=== PATIENT | male | born 1960 | race African-American/Black ===

== ENCOUNTER 2020-03-07 19:00 | Inpatient (IN) | payer OTHER ==
[2020-03-07 21:18] VITALS: BMI 22.9
[2020-03-07] MEDS ORDERED: P-EPHED 60MG/TRIPROLIDI 2.5MG TABLET PO PRN (22:50)
[2020-03-07] MEDS ORDERED: guaiFENesin 200 MG/10 ML 10 ML UNIT-DOSE CUPS PO PRN (22:50)
[2020-03-07] MEDS ORDERED: MAGNESIUM CITRATE 300 ML BOTTLE PO PRN (22:50)
[2020-03-07] MEDS ORDERED: NICOTINE POLACRILEX 2 MG GUM BC PRN (22:50)
[2020-03-07] MEDS ORDERED: MAGNESIUM HYDROX 2400MG/30ML ORAL SUSPENSION 30 ML CUP PO PRN (22:50)
[2020-03-07] MEDS ORDERED: LOPERAMIDE HCL 2 MG CAPSULE PO PRN (22:50)
[2020-03-07] MEDS ORDERED: ACETAMINOPHEN 325 MG TABLET (FP) PO PRN (22:50)
[2020-03-07] MEDS ORDERED: MAG HYDROX/AL HYDROX/SIMETH 30 ML UNIT-DOSE CUP PO PRN (22:50)
[2020-03-07] MEDS ORDERED: PNEUMOC 13-VAL CONJ-DIP CRM/PF 0.5 ML DISP.SYRIN IM ONE (23:45)
[2020-03-08] MEDS ORDERED: TUBERCULIN PPD 5 TU/0.1ML VIAL ID ONE (00:42)
[2020-03-08] MEDS: IBUPROFEN 400 MG TABLET (FP) PO PRN ×2 (01:14→10:26)
[2020-03-08] MEDS: MELATONIN 5 MG TABLETS PO SCH ×2 (01:15→21:45)
[2020-03-08] MEDS: NICOTINE 21 MG/24 HOURS TOPICAL PATCH TD SCH (10:23)
[2020-03-08] MEDS: PRENATAL VITAMINS W/ FOLIC ACID TABLET (FP) PO SCH (10:23)
[2020-03-08] MEDS: BICTEGRAV/EMTRICIT/TENOFOV (BIKTARVY) 50-200-25 MG TABLET PO SCH (10:24)
[2020-03-08] MEDS: hydrOXYzine PAMOATE 25 MG CAPSULE (FP) PO PRN ×2 (10:24→21:45)
[2020-03-08] MEDS: SULFAMETHOXAZOLE/TRIMETHOPRIM 800MG/160MG D.S. TABLET PO SCH (10:24)
[2020-03-08] MEDS: PANTOPRAZOLE 40 MG TABLET PO SCH (10:24)
[2020-03-08] MEDS ORDERED: PREGABALIN 100 MG CAPSULE PO SCH ×2 (11:00→12:00)
[2020-03-08] MEDS ORDERED: FLU VACCINE (FLULAVAL) PF 60 MCG/0.5 ML SYRINGE 2020-2021 IM ONE (12:00)
[2020-03-08] MEDS: TOLNAFTATE 1% CREAM 15 GM TUBE TP SCH ×2 (12:07→21:45)
[2020-03-08 12:33] LABS: HEMATOCRIT 42.3 % (35.4-49); HEMOGLOBIN 13.7 GM/dL (11.7-16.9); MCHC 32.5 g/dl (32.0-35.9); MEAN CELL VOLUME 98.5 fl (80-96); MEAN PLT VOLUME 9.9 fl (7.5-11.1); PLATELET COUNT 168 K/MM3 (134-434); RBC 4.29 M/mm3 (4.00-5.60); RDW 15.8 % (11.9-15.9); WHITE BLOOD COUNT 4.9 K/mm3 (4.0-10.0)
[2020-03-08 12:35] LABS: POTASSIUM 4.4 mmol/L (3.5-5.1)
[2020-03-08 12:41] LABS: CALCIUM 8.8 mg/dL (8.5-10.1)
[2020-03-08 12:42] LABS: ALBUMIN 3.3 g/dl (3.4-5.0); BLOOD UREA NITROGEN 28.9 mg/dL (7-18)
[2020-03-08 12:45] LABS: CREATININE 1.3 mg/dL (0.55-1.3)
[2020-03-08 12:46] LABS: BILIRUBIN,TOTAL 0.7 mg/dL (0.2-1)
[2020-03-08 12:47] LABS: TOT PROT 7.7 g/dl (6.4-8.2)
[2020-03-08] MEDS: OLANZapine 5 MG TABLET PO SCH (21:45)
[2020-03-08] MEDS: MIRTAZAPINE 30 MG TABLET PO SCH (21:45)
[2020-03-08] MEDS: THIAMINE HCL 100 MG TABLET (FP) PO SCH (21:45)
[2020-03-09] MEDS: BICTEGRAV/EMTRICIT/TENOFOV (BIKTARVY) 50-200-25 MG TABLET PO SCH (07:01)
[2020-03-09] MEDS: PREGABALIN 100 MG CAPSULE PO SCH (10:13)
[2020-03-09] MEDS: PRENATAL VITAMINS W/ FOLIC ACID TABLET (FP) PO SCH (10:13)
[2020-03-09] MEDS: TOLNAFTATE 1% CREAM 15 GM TUBE TP SCH ×2 (10:14→21:52)
[2020-03-09] MEDS: PANTOPRAZOLE 40 MG TABLET PO SCH (10:14)
[2020-03-09] MEDS: NICOTINE 21 MG/24 HOURS TOPICAL PATCH TD SCH (10:14)
[2020-03-09] MEDS: SULFAMETHOXAZOLE/TRIMETHOPRIM 800MG/160MG D.S. TABLET PO SCH (10:14)
[2020-03-09] MEDS ORDERED: PNEUMOC 13-VAL CONJ-DIP CRM/PF 0.5 ML DISP.SYRIN IM ONE (12:00)
[2020-03-09 16:40] LABS: PH,URINE 5.5 (5.0-8.0); URINE APPEARANCE CLEAR; URINE BILIRUBIN NEGATIVE (NEGATIVE); URINE COLOR YELLOW; URINE GLUCOSE (UA) NEGATIVE (NEGATIVE); URINE KETONE NEGATIVE (NEGATIVE); URINE LEUK ESTERASE NEGATIVE (NEGATIVE); URINE NITRITE NEGATIVE (NEGATIVE); URINE PROTEIN NEGATIVE (NEGATIVE); URINE UROBILINOGEN 0.2 mg/dL (0.2-1.0)
[2020-03-09] MEDS: OLANZapine 5 MG TABLET PO SCH (21:50)
[2020-03-09] MEDS: MELATONIN 5 MG TABLETS PO SCH (21:50)
[2020-03-09] MEDS: THIAMINE HCL 100 MG TABLET (FP) PO SCH (21:51)
[2020-03-09] MEDS: hydrOXYzine PAMOATE 25 MG CAPSULE (FP) PO PRN (21:51)
[2020-03-09] MEDS: MIRTAZAPINE 30 MG TABLET PO SCH (21:51)
[2020-03-10] MEDS: BICTEGRAV/EMTRICIT/TENOFOV (BIKTARVY) 50-200-25 MG TABLET PO SCH (07:29)
[2020-03-10] MEDS: PRENATAL VITAMINS W/ FOLIC ACID TABLET (FP) PO SCH (10:22)
[2020-03-10] MEDS: PREGABALIN 100 MG CAPSULE PO SCH (10:23)
[2020-03-10] MEDS: PANTOPRAZOLE 40 MG TABLET PO SCH (10:23)
[2020-03-10] MEDS: SULFAMETHOXAZOLE/TRIMETHOPRIM 800MG/160MG D.S. TABLET PO SCH (10:23)
[2020-03-10] MEDS: NICOTINE 21 MG/24 HOURS TOPICAL PATCH TD SCH (10:24)
[2020-03-10] MEDS: TOLNAFTATE 1% CREAM 15 GM TUBE TP SCH ×2 (10:25→21:09)
[2020-03-10] MEDS: THIAMINE HCL 100 MG TABLET (FP) PO SCH (21:09)
[2020-03-10] MEDS: MELATONIN 5 MG TABLETS PO SCH (21:09)
[2020-03-10] MEDS: OLANZapine 5 MG TABLET PO SCH (21:10)
[2020-03-10] MEDS: MIRTAZAPINE 30 MG TABLET PO SCH (21:10)
[2020-03-10] MEDS: hydrOXYzine PAMOATE 25 MG CAPSULE (FP) PO PRN (21:10)
[2020-03-11] MEDS: BICTEGRAV/EMTRICIT/TENOFOV (BIKTARVY) 50-200-25 MG TABLET PO SCH (07:18)
[2020-03-11] MEDS: NICOTINE 21 MG/24 HOURS TOPICAL PATCH TD SCH (10:30)
[2020-03-11] MEDS: PREGABALIN 100 MG CAPSULE PO SCH (10:30)
[2020-03-11] MEDS: PRENATAL VITAMINS W/ FOLIC ACID TABLET (FP) PO SCH (10:30)
[2020-03-11] MEDS: PANTOPRAZOLE 40 MG TABLET PO SCH (10:30)
[2020-03-11] MEDS: SULFAMETHOXAZOLE/TRIMETHOPRIM 800MG/160MG D.S. TABLET PO SCH (10:30)
[2020-03-11] MEDS: TOLNAFTATE 1% CREAM 15 GM TUBE TP SCH ×2 (10:32→21:53)
[2020-03-11] MEDS: THIAMINE HCL 100 MG TABLET (FP) PO SCH (21:52)
[2020-03-11] MEDS: MELATONIN 5 MG TABLETS PO SCH (21:52)
[2020-03-11] MEDS: MIRTAZAPINE 30 MG TABLET PO SCH (21:53)
[2020-03-11] MEDS: OLANZapine 5 MG TABLET PO SCH (21:53)
[2020-03-12] MEDS: hydrOXYzine PAMOATE 25 MG CAPSULE (FP) PO PRN ×2 (01:12→21:18)
[2020-03-12 07:31] VITALS: TEMP 97.5
[2020-03-12] MEDS: BICTEGRAV/EMTRICIT/TENOFOV (BIKTARVY) 50-200-25 MG TABLET PO SCH (08:41)
[2020-03-12] MEDS: PREGABALIN 100 MG CAPSULE PO SCH (10:22)
[2020-03-12] MEDS: PANTOPRAZOLE 40 MG TABLET PO SCH (10:22)
[2020-03-12] MEDS: PRENATAL VITAMINS W/ FOLIC ACID TABLET (FP) PO SCH (10:22)
[2020-03-12] MEDS: SULFAMETHOXAZOLE/TRIMETHOPRIM 800MG/160MG D.S. TABLET PO SCH (10:22)
[2020-03-12] MEDS: TOLNAFTATE 1% CREAM 15 GM TUBE TP SCH ×2 (10:23→21:26)
[2020-03-12] MEDS: NICOTINE 21 MG/24 HOURS TOPICAL PATCH TD SCH (10:23)
[2020-03-12] MEDS: BACITRACIN 0.9 GM PACKET TP SCH (21:17)
[2020-03-12] MEDS: MIRTAZAPINE 30 MG TABLET PO SCH (21:18)
[2020-03-12] MEDS: MELATONIN 5 MG TABLETS PO SCH (21:18)
[2020-03-12] MEDS: THIAMINE HCL 100 MG TABLET (FP) PO SCH (21:18)
[2020-03-12] MEDS: OLANZapine 5 MG TABLET PO SCH (21:18)
[2020-03-13 07:08] VITALS: BP 153/96; PULSE 78
[2020-03-13] MEDS: BICTEGRAV/EMTRICIT/TENOFOV (BIKTARVY) 50-200-25 MG TABLET PO SCH (07:28)
[2020-03-13] MEDS ORDERED: MASKS NR ONE (07:28)
[2020-03-13] MEDS: SULFAMETHOXAZOLE/TRIMETHOPRIM 800MG/160MG D.S. TABLET PO SCH (09:12)
[2020-03-13] MEDS: PANTOPRAZOLE 40 MG TABLET PO SCH (09:12)
[2020-03-13] MEDS: PREGABALIN 100 MG CAPSULE PO SCH (09:12)
[2020-03-13] MEDS: PRENATAL VITAMINS W/ FOLIC ACID TABLET (FP) PO SCH (09:13)
[2020-03-13] MEDS: NICOTINE 21 MG/24 HOURS TOPICAL PATCH TD SCH (09:13)
[2020-03-13] MEDS: BACITRACIN 0.9 GM PACKET TP SCH (09:13)
[2020-03-13] MEDS: TOLNAFTATE 1% CREAM 15 GM TUBE TP SCH (09:13)
== END 2020-03-13 09:26 | disposition home or self-care (01) | DRG 895 ==
LOC: YASAS 19:00 → Y5N 23:36
PROVIDERS: ADMIT Allergy & Immunology; ATTEND Allergy & Immunology
PROC: HZ42ZZZ Group Counseling for Substance Abuse Treatment, Cognitive-Behavioral (ICD-10-PCS; principal; 2020-03-07)
DX: F10.20 Alcohol dependence, uncomplicated (principal); F15.20 Other stimulant dependence, uncomplicated; B20 Human immunodeficiency virus [HIV] disease; B19.10 Unspecified viral hepatitis B without hepatic coma; F12.20 Cannabis dependence, uncomplicated; F17.210 Nicotine dependence, cigarettes, uncomplicated; F25.9 Schizoaffective disorder, unspecified; F41.9 Anxiety disorder, unspecified; F32.9 Major depressive disorder, single episode, unspecified; F90.9 Attention-deficit hyperactivity disorder, unspecified type; G62.9 Polyneuropathy, unspecified; Z62.810 Personal history of physical and sexual abuse in childhood; Z87.01 Personal history of pneumonia (recurrent)
CPT/HCPCS: 36415; 80053; 81003; 85027; 86593; 86780; 90670; C9803; G0008; G0009; Q2036; U0003